=== PATIENT | male | born 1950 | race Caucasian/White ===

== ENCOUNTER 2017-09-15 14:42 | Emergency (ER) | payer OTHER ==
[~2017-09-15] VITALS: Ht 188 cm; Wt 140.6 kg
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
[2017-09-15 15:09] LABS: BASOPHIL % 0.3 % (0.0-0.2); EOSINOPHIL # 0.5 10^3/uL (0.0-0.2); EOSINOPHIL % 6.6 % (0.0-5.0); LYMPHOCYTES % 28.1 % (24.0-44.0); MEAN CELL HGB CONCENTRATION 33.2 g/dL (33-37); MEAN CORP VOLUME 90.4 fL (78-100); MEAN PLATELET VOLUME 10.4 fL (7.8-11.0); MONOCYTES # 0.5 10^3/uL (0.3-0.8); MONOCYTES % 7.4 % (5.0-12.0); NEUTROPHIL # 4.1 10^3/uL (1.8-7.7); RED CELL DISTRIBUTION WIDTH 12.7 % (11.5-14.5); WHITE BLOOD CELL 7.2 10^3/uL (4.5-11.0)
[2017-09-15 15:20] LABS: CALCIUM 8.5 mg/dL (8.4-10.5); CARBON DIOXIDE 26.6 mmol/L (20.0-32)
--- NOTE | 2017-09-15 15:22 | DIREP ---
PROCEDURE:XRAY SHOULDER MIN 2 VWS-LT COMPARISON:None. INDICATIONS:injury FINDINGS: BONES:Two views of the left shoulder. 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 Mild DJD also seen in the left AC joint with downsloping acromion causing impingement. JOINTS:Normal glenohumeral and acromioclavicular joints. No evidence for dislocation. SOFT TISSUES:Normal. OTHER:Normal. CONCLUSION:Mild DJD in the left glenohumeral joint as well as in the left AC joint with impingement by downsloping acromion. Dictated by: Nick Barber MD on 09/15/2017 at 03:21 PM
--- NOTE | 2017-09-15 15:23 | DIREP ---
PROCEDURE:XRAY ANKLE MIN 3VWS-LT COMPARISON:None. INDICATIONS:injury, FALL OF SEMI, PAIN FINDINGS: BONES:Three views of the left ankle. No acute fracture is seen in the medial, lateral or the posterior malleolus. Minimal bimalleolar soft tissue swelling seen. No joint widening is identified. A small calcaneal spur identified. JOINTS:Normal. SOFT TISSUES:Normal. OTHER:No additional findings. CONCLUSION:No acute findings in the three views of the left ankle. Dictated by: Nick Barber MD on 09/15/2017 at 03:21 PM
--- NOTE | 2017-09-15 15:24 | DIREP ---
PROCEDURE:XRAY TIB & FIB 2 VW-LT COMPARISON:None. INDICATIONS:FALL OFF SEMI, PAIN FINDINGS: BONES:Two views of the left tibia and the fibula. No acute fracture, cortical destruction or periosteal reaction is seen. No radiopaque foreign body, or soft tissue prominence is identified. JOINTS:Normal. SOFT TISSUES:Normal. OTHER:No additional findings. CONCLUSION:No acute findings in the AP and lateral views of the left tibia and the fibula. Dictated by: Nick Barber MD on 09/15/2017 at 03:23 PM
--- NOTE | 2017-09-15 15:25 | DIREP ---
PROCEDURE:XRAY KNEE 1-2 VWS-LT COMPARISON:None. INDICATIONS:FALL OFF SEMI, PAIN FINDINGS: BONES:Two views of the left knee. No acute fracture, or loose bodies are seen. JOINTS:A small joint effusion in the suprapatellar bursa. Narrowing of the medial joint space noted. DJD also seen in the lateral and the patellofemoral compartment. SOFT TISSUES:Normal. OTHER:No additional findings. CONCLUSION:DJD in the medial compartment of the left knee. Joint effusion noted. Dictated by: Nick Barber MD on 09/15/2017 at 03:23 PM
--- NOTE | 2017-09-15 15:35 | DIREP ---
PROCEDURE:XRAY RIBS W/PA CHEST 3VWS-LT COMPARISON:None. INDICATIONS:injury TECHNIQUE:PA chest and AP and oblique views of the left ribs FINDINGS: LEFT RIBS:No fracture. LUNGS/PLEURA: No significant pulmonary parenchymal abnormalities. CARDIAC: Normal size cardiac silhouette and normal vascularity. MEDIASTINUM: Normal. Tortuosity of the thoracic aorta is noted. BONES: Normal. OTHER: No additional findings. CONCLUSION: 1. No rib fracture or pneumothorax is seen. Dictated by: Yimi Almazan M.D. on 09/15/2017 at 03:33 PM
[2017-09-15] MEDS ORDERED: TRIPLE ANTIBIOTIC OINTMENT TP ONE (16:18)
[2017-09-15 16:42] VITALS: BP 119/49
== END 2017-09-15 15:57 | disposition home or self-care (01) ==
LOC: EDBD 14:42 → ER 14:42
DX: S43.402A Unspecified sprain of left shoulder joint, initial encounter (principal); S80.812A Abrasion, left lower leg, initial encounter; V68.3XXA Unspecified occupant of heavy transport vehicle injured in noncollision transport accident in nontraffic accident, initial encounter; Y92.89 Other specified places as the place of occurrence of the external cause; Y93.89 Activity, other specified; Y99.8 Other external cause status
CPT/HCPCS: 36415; 80053; 85025; 86140; 99285; 71101-LT; 73030-LT; 73560-LT; 73590-LT; 73610-LT